=== PATIENT | female | born 1995 | race Caucasian/White ===

== ENCOUNTER 2018-02-16 12:56 | Emergency (ER) | payer OTHER ==
[~2018-02-16] VITALS: Ht 167.6 cm; Wt 87.3 kg
[~2018-02-16 12:56] MED LIST: DOCU-131 PO; IBUP-1223 PO; OXYC-302 PO
[2018-02-16 15:27] VITALS: BP 98/48
[2018-02-16] MEDS ORDERED: BIRTH CONTROL (15:32)
[2018-02-16 15:50] LABS: MICROSCOPIC NOT IND
[2018-02-16 15:53] LABS: CULTURE INDICATED? NO
[2018-02-16 16:09] LABS: BASOPHILS # (AUTO) 0.13 x10^3/uL (0-0.1); BASOPHILS % (AUTO) 1 % (0-1); EOSINOPHILS % (AUTO) 1 % (1-7); LYMPHOCYTES # (AUTO) 2.57 x10^3/uL (1-3.4); LYMPHOCYTES % (AUTO) 22 % (22-44); MD NO; MEAN CORPUSCULAR HEMOGLOBIN 29.3 pg (27.0-34.8); MEAN CORPUSCULAR HGB CONC 33.7 g/dL (32.4-35.8); MEAN PLATELET VOLUME 8.7 fL (7.4-10.4); MONOCYTES # (AUTO) 0.74 x10^3/uL (0.2-0.8); MONOCYTES % (AUTO) 6 % (2-9); NEUTROPHILS # (AUTO) 8.35 x10^3/uL (1.8-6.8); NEUTROPHILS % (AUTO) 70 % (42-75); PLATELET COUNT 272 x10^3/uL (130-400); RED BLOOD COUNT 4.95 x10^6/uL (3.82-5.3); RED CELL DISTRIBUTION WIDTH 14.5 % (9.6-15.2)
[2018-02-16 16:24] LABS: ALBUMIN 4.2 g/dL (3.4-5.0); ANION GAP 6 mmol/L (5-15); CALCIUM 9.6 mg/dL (8.5-10.1); CHLORIDE 108 mmol/L (98-107)
[2018-02-16 16:31] LABS: CREATININE 0.81 mg/dL (0.55-1.02)
== END 2018-02-16 17:13 | disposition home or self-care (01) ==
LOC: ED 17:07
DX: R10.30 Lower abdominal pain, unspecified (principal)
CPT/HCPCS: 36415; 76830; 80048; 81003; 82040; 84703; 85025; 99285

== ENCOUNTER 2018-05-08 19:07 | Emergency (ER) | payer OTHER, MEDICAID ==
[~2018-05-08] VITALS: Ht 167.6 cm; Wt 85.0 kg
[~2018-05-08 19:07] MED LIST changes: +BIRTH CONTROL
[2018-05-08] MEDS ORDERED: MAALOX/HYOSCYAMINE/LIDOCAINE 45 ML BTL ONE (19:34)
[2018-05-08 19:37] LABS: BASOPHILS # (AUTO) 0.07 x10^3/uL (0-0.1); BASOPHILS % (AUTO) 1 % (0-1); EOSINOPHILS # (AUTO) 0.15 x10^3/uL (0-0.4); EOSINOPHILS % (AUTO) 2 % (1-7); LYMPHOCYTES # (AUTO) 2.69 x10^3/uL (1-3.4); LYMPHOCYTES % (AUTO) 26 % (22-44); MD NO; MEAN CORPUSCULAR HEMOGLOBIN 29.1 pg (27.0-34.8); MEAN CORPUSCULAR HGB CONC 33.4 g/dL (32.4-35.8); MEAN CORPUSCULAR VOLUME 87.1 fL (80-100); MEAN PLATELET VOLUME 8.5 fL (7.4-10.4); MONOCYTES # (AUTO) 0.56 x10^3/uL (0.2-0.8); MONOCYTES % (AUTO) 6 % (2-9); NEUTROPHILS # (AUTO) 6.71 x10^3/uL (1.8-6.8); NEUTROPHILS % (AUTO) 66 % (42-75); PLATELET COUNT 300 x10^3/uL (130-400); RED BLOOD COUNT 4.74 x10^6/uL (3.82-5.3); RED CELL DISTRIBUTION WIDTH 13.8 % (9.6-15.2)
[2018-05-08 19:49] LABS: ALANINE AMINOTRANSFERASE 43 U/L (12-78); ALBUMIN 4.1 g/dL (3.4-5.0); ANION GAP 7 mmol/L (5-15); CALCIUM 8.8 mg/dL (8.5-10.1); CHLORIDE 106 mmol/L (98-107)
[2018-05-08 19:54] LABS: ALKALINE PHOSPHATASE 125 U/L (45-117); BILIRUBIN,TOTAL 0.2 mg/dL (0.2-1.0); TOTAL PROTEIN 7.8 g/dL (6.4-8.2); TROPONIN I < 0.015 ng/mL (0.000-0.045)
[2018-05-08] MEDS ORDERED: MAALOX/HYOSCYAMINE/LIDOCAINE 45 ML BTL PO ONE (20:00)
[2018-05-08 20:34] VITALS: BP 117/75
== END 2018-05-08 20:52 | disposition home or self-care (01) ==
LOC: ED 20:46
DX: R06.00 Dyspnea, unspecified (principal); K29.00 Acute gastritis without bleeding
CPT/HCPCS: 36415; 71045; 80053; 83690; 84484; 84703; 85025; 85379; 93005; 99285

== ENCOUNTER 2019-04-05 12:01 | Emergency (ER) | payer MEDICAID, OTHER ==
[~2019-04-05] VITALS: Ht 165.1 cm; Wt 80.0 kg
--- NOTE | 2019-04-05 12:26 | NUR ---
patient arrives to er with vaginal bleeding. she states she is 11 weeks . [facility] bathroom just [employer] and she had dark brown blood vaginally. she came straight here. patient has no other s/s of distress. she has been 2x and has one child.
[2019-04-05 12:52] LABS: BASOPHILS # (AUTO) 0.04 x10^3/uL (0-0.1); BASOPHILS % (AUTO) 1 % (0-1); EOSINOPHILS # (AUTO) 0.08 x10^3/uL (0-0.4); EOSINOPHILS % (AUTO) 1 % (1-7); LYMPHOCYTES # (AUTO) 2.19 x10^3/uL (1-3.4); LYMPHOCYTES % (AUTO) 27 % (22-44); MD NO; MEAN CORPUSCULAR HEMOGLOBIN 29.3 pg (27.0-34.8); MEAN CORPUSCULAR VOLUME 88.8 fL (80-100); MONOCYTES # (AUTO) 0.46 x10^3/uL (0.2-0.8); MONOCYTES % (AUTO) 6 % (2-9); NEUTROPHILS # (AUTO) 5.46 x10^3/uL (1.8-6.8); NEUTROPHILS % (AUTO) 66 % (42-75); PLATELET COUNT 233 x10^3/uL (130-400); RED BLOOD COUNT 4.66 x10^6/uL (3.82-5.3); RED CELL DISTRIBUTION WIDTH 13.3 % (9.6-15.2)
--- NOTE | 2019-04-05 12:58 | NUR ---
patient blood and urine in lab. patient left with ultrasound for tests.
[2019-04-05 13:01] LABS: ALBUMIN 3.9 g/dL (3.4-5.0); ANION GAP 5 mmol/L (5-15); CHLORIDE 108 mmol/L (98-107); CREATININE 0.65 mg/dL (0.55-1.02)
[2019-04-05 13:06] LABS: MICROSCOPIC INDICATED
[2019-04-05 13:13] LABS: CULTURE INDICATED? NO
--- NOTE | 2019-04-05 13:15 | NUR ---
patient back from u/s. in bed, rails up. awaiting workup
--- NOTE | 2019-04-05 14:23 | NUR ---
patient having vaginal bleeding, got her pads and gauze wipes and helped her clean up. patient placed on ob bed and ready for pelvic exam.
--- NOTE | 2019-04-05 14:48 | NUR ---
BREAK RN: PT REPORT FROM MANUEL SOTELO. PT CARE TO BE ASSUMED.
--- NOTE | 2019-04-05 14:55 | NUR ---
DR KUMAR BS FOR PELVIC EXAM, ASSISTED BY THIS RN. PT TOLERATED PROCEDURE WELL. PT'S FRIEND IN ROOM. Addendum: 04/05/19 at 1531 by DIANE PT REPORTS SHE HAS AN APPT W/ [employer]IC TOMORROW.
[2019-04-05 15:00] VITALS: BP 125/78
== END 2019-04-05 15:33 | disposition home or self-care (01) ==
LOC: ED 15:27
DX: O03.4 Incomplete spontaneous abortion without complication (principal); Z87.891 Personal history of nicotine dependence
CPT/HCPCS: 36415; 76801; 80048; 81001; 82040; 84702; 85025; 99284

== ENCOUNTER 2019-04-06 21:26 | Emergency (ER) | payer MEDICAID ==
[~2019-04-06] VITALS: Ht 167.6 cm; Wt 81.3 kg
[2019-04-06] MEDS ORDERED: HYDROcodone/APAP 5/325 TABLET ONE (22:11)
[2019-04-06] MEDS ORDERED: HYDROcodone/APAP 5/325 TABLET PO ONE (22:30)
[2019-04-06 22:31] LABS: BASOPHILS # (AUTO) 0.04 x10^3/uL (0-0.1); BASOPHILS % (AUTO) 0 % (0-1); EOSINOPHILS # (AUTO) 0.07 x10^3/uL (0-0.4); EOSINOPHILS % (AUTO) 1 % (1-7); LYMPHOCYTES # (AUTO) 1.89 x10^3/uL (1-3.4); LYMPHOCYTES % (AUTO) 19 % (22-44); MD NO; MEAN CORPUSCULAR HEMOGLOBIN 29.9 pg (27.0-34.8); MEAN CORPUSCULAR HGB CONC 33.2 g/dL (32.4-35.8); MEAN PLATELET VOLUME 8.3 fL (7.4-10.4); MONOCYTES # (AUTO) 0.56 x10^3/uL (0.2-0.8); MONOCYTES % (AUTO) 6 % (2-9); NEUTROPHILS # (AUTO) 7.43 x10^3/uL (1.8-6.8); NEUTROPHILS % (AUTO) 74 % (42-75); PLATELET COUNT 227 x10^3/uL (130-400); RED BLOOD COUNT 4.45 x10^6/uL (3.82-5.3); RED CELL DISTRIBUTION WIDTH 13.4 % (9.6-15.2)
[2019-04-06 22:43] LABS: ALBUMIN 3.8 g/dL (3.4-5.0); ANION GAP 8 mmol/L (5-15); CALCIUM 9.2 mg/dL (8.5-10.1); CHLORIDE 108 mmol/L (98-107); CREATININE 0.78 mg/dL (0.55-1.02)
[2019-04-06] MEDS ORDERED: KETOROLAC 30 MG/1 ML ONE (23:26)
[2019-04-06] MEDS ORDERED: KETOROLAC 30 MG/1 ML IM ONE (23:30)
[2019-04-06 23:49] VITALS: BP 109/64
== END 2019-04-06 23:51 | disposition home or self-care (01) ==
LOC: ED 23:33
DX: O03.4 Incomplete spontaneous abortion without complication (principal)
CPT/HCPCS: 36415; 80048; 82040; 84702; 85025; 96372; 99283; J1885